=== PATIENT | female | born 1960 ===

== ENCOUNTER 2025-03-03 07:26 | Outpatient (RCR) | payer MEDICARE, SELFPAY | END 2025-03-03 23:59 | disposition home or self-care (01) | LOC: ROT 07:26 | PROVIDERS: ATTENDING PHYSICIAN Physician Assistant; FAMILY PHYSICIAN Family Medicine | DX: S63.104D Unspecified dislocation of right thumb, subsequent encounter (principal); S61.011D Laceration without foreign body of right thumb without damage to nail, subsequent encounter; Z73.6 Limitation of activities due to disability | CPT/HCPCS: 97018; 97140; 97166; 97535 ==